=== PATIENT | male | born 1965 ===

== ENCOUNTER 2020-08-10 11:42 | Emergency (ER) | payer MEDICAID, OTHER ==
[~2020-08-10] VITALS: Ht 170.2 cm; Wt 65.8 kg
[2020-08-10 13:35] VITALS: BP 146/74
[2020-08-10] MEDS ORDERED: TETRACAINE HCL 0.5% OPTH(EYE) SOLN 4ML RIGHTEYE ONE (14:15)
[2020-08-10] MEDS ORDERED: FLUORESCEIN SOD OPTH TEST STRIP RIGHTEYE ONE (14:15)
== END 2020-08-10 15:55 | disposition home or self-care (01) ==
LOC: ER 11:42
DX: S05.01XA Injury of conjunctiva and corneal abrasion without foreign body, right eye, initial encounter (principal); F17.210 Nicotine dependence, cigarettes, uncomplicated; X58.XXXA Exposure to other specified factors, initial encounter; Y93.89 Activity, other specified; Y92.89 Other specified places as the place of occurrence of the external cause; Y99.8 Other external cause status